=== PATIENT | male | born 1970 | race Caucasian/White ===

== ENCOUNTER 2019-07-08 16:45 | Inpatient (IN) ==
[2019-07-08] MEDS ORDERED: Isovue-370 500 ML BOTTLE IVP ONE (20:28)
[2019-07-08] MEDS ORDERED: Naloxone 0.4 MG/ML INJ IVP PRN (20:29)
[2019-07-08] MEDS: Ondansetron 4 MG/2 ML VIAL IVP PRN (20:43)
[2019-07-08] MEDS ORDERED: D5% in Water 1,000 ML IVC PRN (22:43)
[2019-07-08] MEDS ORDERED: *HR* Dextrose 50 % in Water (Syg) 50 ML SYRINGE IVP PRN (22:43)
[2019-07-08] MEDS ORDERED: Dextrose Gel 15 GM/37.5 ML TUBE PO PRN ×2 (22:43)
[2019-07-08] MEDS: Insulin LISPRO 300 UNITS/3 ML VIAL SQ SCH (23:13)
[2019-07-09 04:40] LABS: Hematocrit 44.6 % (37.5-50.1); Hemoglobin 15.2 g/dL (12.9-16.9); Mean Corpuscular HGB Conc 34.1 g/dL (31.6-35.5); Mean Corpuscular Hemoglobin 29.8 pg (28.0-33.3); Mean Corpuscular Volume 87.5 fL (83.0-100.0); Platelet Count 249 K/mcL (140-400); Red Cell Distribution Width 12.2 % (11.5-14.5); White Blood Count 10.1 K/mcL (4.3-11.1)
[2019-07-09] MEDS: Ondansetron 4 MG/2 ML VIAL IVP PRN (04:44)
[2019-07-09 04:52] LABS: Chol/HDL Ratio 4.3 (0-4.9)
[2019-07-09 04:53] LABS: BUN/Creatinine Ratio 20 (6-26); Blood Urea Nitrogen 11 mg/dL (6-20); Calcium 8.6 mg/dL (8.6-10.3); Carbon Dioxide 25 mEq/L (23-29); Chloride 103 mEq/L (98-107); Glucose 221 mg/dL (70-105); Osmolality,Calculated 290 (280-300); Potassium 3.9 mEq/L (3.5-5.1); Sodium 137 mEq/L (136-145); eGFR For African Americans > 60 (> 60); eGFR For Non-African Americans > 60 (> 60)
[2019-07-09 04:54] LABS: Albumin 3.7 g/dL (3.5-5.7); Albumin/Globulin Ratio 1.3 (1.1-2.2); Bilirubin,Direct 0.1 mg/dL (0.0-0.2); Bilirubin,Indirect 0.4 mg/dL (0.0-1.0); Bilirubin,Total 0.5 mg/dL (0.3-1.0); Globulin 2.8 g/dL (2.4-3.5); Total Protein 6.5 g/dL (6.4-8.9)
[2019-07-09] MEDS: Insulin LISPRO 300 UNITS/3 ML VIAL SQ SCH ×5 (05:34→20:03)
[2019-07-09] MEDS: *HR* Heparin 5,000 UNIT/ML VIAL SQ SCH ×2 (05:34→16:18)
[2019-07-09] MEDS ORDERED: Acetaminophen 325 MG TABLET PO PRN (08:38)
[2019-07-09] MEDS ORDERED: Aspirin 81 MG TAB.CHEW PO SCH (09:00)
[2019-07-09] MEDS ORDERED: Ondansetron 4 MG/2 ML VIAL IVP PRN (09:33)
[2019-07-09 09:50] LABS: Estimated Average Glucose 263 mg/dl
[2019-07-09 09:55] LABS: Folate 17.7 ng/mL (3.0-16.0)
[2019-07-09] MEDS ORDERED: Perflutren Lipid Microsphere 1.3 ML in 0.9 % Sodium Chloride 8.7 ML IVP ONE (10:06)
[2019-07-09] MEDS ORDERED: E-Z-PAQUE (BARIUM SULF) SUSP 1 BOTTLE PO ONE (12:09)
[2019-07-09] MEDS ORDERED: E-Z-HD (BARIUM SULF) SUSPENSION PO ONE (12:09)
[2019-07-09] MEDS ORDERED: *HR* LORazepam 2 MG/ML VIAL IVP ONE (20:00)
[2019-07-10] MEDS: Insulin LISPRO 300 UNITS/3 ML VIAL SQ SCH ×7 (02:48→22:19)
[2019-07-10] MEDS: *HR* Heparin 5,000 UNIT/ML VIAL SQ SCH ×2 (05:48→18:02)
[2019-07-10] MEDS: Spironolactone 25 MG TABLET PO SCH (16:19)
[2019-07-11] MEDS: Insulin LISPRO 300 UNITS/3 ML VIAL SQ SCH ×6 (01:50→21:19)
[2019-07-11] MEDS: *HR* Heparin 5,000 UNIT/ML VIAL SQ SCH ×2 (05:18→17:04)
[2019-07-11] MEDS: Metoprolol XL (24 HR) Succ 25 MG TAB.ER.24H PO SCH (10:14)
[2019-07-11] MEDS: Spironolactone 25 MG TABLET PO SCH (10:15)
[2019-07-12] MEDS: Insulin LISPRO 300 UNITS/3 ML VIAL SQ SCH ×7 (03:24→21:57)
[2019-07-12] MEDS: *HR* Heparin 5,000 UNIT/ML VIAL SQ SCH ×2 (05:42→14:41)
[2019-07-12] MEDS: Spironolactone 25 MG TABLET PO SCH (07:42)
[2019-07-12] MEDS: Metoprolol XL (24 HR) Succ 25 MG TAB.ER.24H PO SCH (07:43)
[2019-07-12] MEDS ORDERED: E-Z-PAQUE (BARIUM SULF) SUSP 1 BOTTLE PO ONE (13:27)
[2019-07-12] MEDS ORDERED: E-Z-HD (BARIUM SULF) SUSPENSION PO ONE (13:27)
[2019-07-13] MEDS: Insulin LISPRO 300 UNITS/3 ML VIAL SQ SCH ×4 (03:08→12:17)
[2019-07-13] MEDS: *HR* Heparin 5,000 UNIT/ML VIAL SQ SCH (05:13)
[2019-07-13] MEDS: Metoprolol XL (24 HR) Succ 25 MG TAB.ER.24H PO SCH (08:28)
[2019-07-13] MEDS: Spironolactone 25 MG TABLET PO SCH (08:29)
[2019-07-13 11:02] VITALS: BP 150/96
== END 2019-07-13 12:24 | disposition other institution (70) | DRG 194 ==
LOC: 3BNU → SUATTDRO 18:52
PROVIDERS: ADMIT Internal Medicine; ATTEND Internal Medicine